=== PATIENT | female | born 1935 | race Caucasian/White ===

== ENCOUNTER → 2016-11-19 | Outpatient (REF) | payer MEDICARE, OTHER ==
[~2016-11-19] MED LIST: ASPI81TA45 OR; CALCCHW12 OR; CELE10TA OR; RESPERIDAL OR; SYNT137T OR; TEGR200T OR; THERGRAN OR; VITA100T OR; VITA400C OR
[2016-11-19 11:21] LABS: BASO % 0.6 % (0.0-1.0); EOS # 0.1 K/mm3 (0.0-0.50); EOS % 2.7 % (0.0-3.0); LARGE UNSTAINED CELL # 0.1 K/mm3 (0.0-0.4); LARGE UNSTAINED CELL % 2.8 % (0.0-4.0); LYMPH # 0.8 K/mm3 (1.5-4.5); LYMPH % 17.9 % (24.0-44.0); MEAN CORPUSCULAR HEMOGLOBIN 31.5 pg (27.0-33.0); MEAN CORPUSCULAR HGB CONC 32.8 g/dl (32.0-36.5); MEAN CORPUSCULAR VOLUME 96.2 fl (80.0-96.0); MONO # 0.3 K/mm3 (0.0-0.8); MONO % 6.8 % (0.0-5.0); NEUTROPHILS # 3.3 K/mm3 (1.8-7.7); NEUTROPHILS % 69.3 % (36.0-66.0); PLATELET COUNT, AUTOMATED 202 k/mm3 (150-450); RED CELL DISTRIBUTION WIDTH 13.3 % (11.5-14.5); WHITE BLOOD COUNT 4.7 K/mm3 (4.0-10.0)
[2016-11-19 11:45] LABS: ALBUMIN 3.9 GM/DL (3.2-5.2); ALBUMIN/GLOBULIN RATIO 1.26 (1.00-1.93); ALKALINE PHOSPHATASE 83 U/L (45-117); ALT/SGPT 43 U/L (12-78); ANION GAP 8 MEQ/L (8-16); AST/SGOT 26 U/L (15-37); BILIRUBIN,TOTAL 0.3 MG/DL (0.2-1.0); BLOOD UREA NITROGEN 29 MG/DL (7-18); CALCIUM LEVEL 8.3 MG/DL (8.8-10.2); CARBON DIOXIDE LEVEL 30 MEQ/L (21-32); CHLORIDE LEVEL 103 MEQ/L (98-107); CHOLESTEROL LEVEL 173 MG/DL (<200); CREATININE FOR GFR 0.66 MG/DL (0.55-1.02); GLOMERULAR FILTRATION RATE > 60.0 (>32); GLUCOSE, FASTING 88 MG/DL (83-110); POTASSIUM SERUM 4.3 MEQ/L (3.5-5.1); SODIUM LEVEL 141 MEQ/L (136-145); TRIGLYCERIDES LEVEL 23 MG/DL (<150)
== END ==
LOC: M SFHCCLAY 08:31
PROVIDERS: ATTEND Family Medicine
DX: N18.3 Chronic kidney disease, stage 3 (moderate) (principal); E55.9 Vitamin D deficiency, unspecified; M85.80 Other specified disorders of bone density and structure, unspecified site; R73.01 Impaired fasting glucose; E03.9 Hypothyroidism, unspecified; Z51.81 Encounter for therapeutic drug level monitoring

== ENCOUNTER → 2016-11-19 | Outpatient (REF) | payer MEDICARE, OTHER ==
[2016-11-19 11:41] LABS: BASO % 0.7 % (0.0-1.0); EOS # 0.1 K/mm3 (0.0-0.50); EOS % 2.3 % (0.0-3.0); LARGE UNSTAINED CELL # 0.1 K/mm3 (0.0-0.4); LARGE UNSTAINED CELL % 2.5 % (0.0-4.0); LYMPH # 0.9 K/mm3 (1.5-4.5); MEAN CORPUSCULAR HEMOGLOBIN 31.9 pg (27.0-33.0); MEAN CORPUSCULAR HGB CONC 33.2 g/dl (32.0-36.5); MEAN CORPUSCULAR VOLUME 96.2 fl (80.0-96.0); MONO # 0.3 K/mm3 (0.0-0.8); MONO % 6.8 % (0.0-5.0); NEUTROPHILS # 3.3 K/mm3 (1.8-7.7); NEUTROPHILS % 69.7 % (36.0-66.0); PLATELET COUNT, AUTOMATED 196 k/mm3 (150-450); RED CELL DISTRIBUTION WIDTH 13.4 % (11.5-14.5); WHITE BLOOD COUNT 4.8 K/mm3 (4.0-10.0)
== END ==
LOC: M LABDRAWC 11:22
PROVIDERS: ATTEND Psychiatry & Neurology Psychiatry
DX: Z51.81 Encounter for therapeutic drug level monitoring (principal)

== ENCOUNTER → 2017-03-01 | Outpatient (CLI) | payer MEDICARE, OTHER ==
--- NOTE | 2017-03-03 09:22 | DEXA ---
AP SPINE L1 - L4 1.640 3.6 5.4 LT FEMUR TOTAL 0.857 -1.2 0.8 RT FEMUR TOTAL 0.896 -0.9 1.1 TOTAL BODY TOTAL OTHER DUAL FEMUR FRAX* ASSESSMENT Risk factors: None. 10 year probability of fracture Major osteoporotic fracture 14.6 % Hip fracture 3.8 % COMMENTS: Normal bone densitometry of the spine. Normal bone densitometry of the right hip. There is low bone density of the left hip based on femoral neck T score -1.7 months. There is degenerative change in the spine which may artificially elevate the BMD. The increased density of the spine does represent a significant change since 01/2015. The increased density of the left hip does not represent a significant change . The decreased density of the right hip does not represent a significant change. The density of the spine has increased 21.0% since the initial exam on 1998. The spine density has increased 4.9% since the most recent exam on 11/21/2014. The density of the left hip has decreased 7.8% since the initial exam on 1998. The density of the left hip has increased 0.6% since the most recent exam on 01/2015. The density of the right hip has decreased 4.4% since the initial exam on 1998. The density of the right hip has decreased 0.9% since the most recent exam on . FOLLOW-UP: Recommendation for the next bone density exam: 2 years. YARITZA
== END ==
LOC: M WHC 14:29
PROVIDERS: ATTEND Family Medicine
DX: M85.80 Other specified disorders of bone density and structure, unspecified site (principal); Z78.0 Asymptomatic menopausal state

== ENCOUNTER → 2017-04-01 | Outpatient (REF) | payer MEDICARE, OTHER ==
[~2017-04-01] MED LIST changes: +CITA20TA4 PO; +RISP2TAB32 PO; +SYNT125T PO; -TEGR200T OR; +TEGR200T PO; +VITATAB11 PO
[2017-04-01 11:49] LABS: BASO % 0.9 % (0.0-1.0); EOS # 0.1 K/mm3 (0.0-0.50); EOS % 2.7 % (0.0-3.0); LARGE UNSTAINED CELL # 0.1 K/mm3 (0.0-0.4); LYMPH # 0.9 K/mm3 (1.5-4.5); LYMPH % 17.8 % (24.0-44.0); MEAN CORPUSCULAR HEMOGLOBIN 32.7 pg (27.0-33.0); MEAN CORPUSCULAR HGB CONC 33.2 g/dl (32.0-36.5); MEAN CORPUSCULAR VOLUME 98.4 fl (80.0-96.0); MONO # 0.4 K/mm3 (0.0-0.8); MONO % 9.7 % (0.0-5.0); NEUTROPHILS % 66.9 % (36.0-66.0); PLATELET COUNT, AUTOMATED 201 k/mm3 (150-450); RED CELL DISTRIBUTION WIDTH 13.6 % (11.5-14.5); WHITE BLOOD COUNT 4.5 K/mm3 (4.0-10.0)
[2017-04-01 12:09] LABS: CARCINOEMBRYONIC ANTIGEN 3.6 NG/ML (<2.5)
[2017-04-01 12:11] LABS: ERYTHROCYTE SEDIMENTATION RATE 7 mm/hr (0-30)
[2017-04-01 12:25] LABS: CARBAMAZEPINE (TEGRETOL) LEVEL 6.4 UG/ML (4.0-10.0); FERRITIN 42 NG/ML (8-252); FREE T4 1.05 NG/DL (0.76-1.46); PERCENT SATURATION 28.2 % (13.2-37.4); TOTAL IRON BINDING CAPACITY 305 UG/DL (250-450)
[2017-04-01 12:38] LABS: CA 125 2.2 U/ML (<30.2)
== END ==
LOC: M SFHCPLAZ 10:13
PROVIDERS: ATTEND Family Medicine
DX: R63.4 Abnormal weight loss (principal); E53.8 Deficiency of other specified B group vitamins; E03.9 Hypothyroidism, unspecified; R73.01 Impaired fasting glucose; F31.9 Bipolar disorder, unspecified; R27.0 Ataxia, unspecified; D75.89 Other specified diseases of blood and blood-forming organs; M77.42 Metatarsalgia, left foot; M85.80 Other specified disorders of bone density and structure, unspecified site; E55.9 Vitamin D deficiency, unspecified; R82.71 Bacteriuria; Z79.82 Long term (current) use of aspirin; Z79.899 Other long term (current) drug therapy
CPT/HCPCS: 36415; 80156; 82378; 82728; 83036; 83550; 84439; 84443; 85025; 85652; 86140; 86304; G0463

== ENCOUNTER 2017-06-16 08:30 | Outpatient (RCR) | payer MEDICARE, OTHER ==
[~2017-06-16 08:30] MED LIST changes: -CITA20TA4 PO; -RISP2TAB32 PO; -SYNT125T PO; -VITATAB11 PO
[2017-07-13] MEDS ORDERED: VITATAB11 PO (15:08)
[2017-07-13] MEDS ORDERED: CITA20TA4 PO (15:08)
[2017-07-13] MEDS ORDERED: SYNT125T PO (15:08)
[2017-07-13] MEDS ORDERED: RISP2TAB32 PO (15:08)
== END 2017-06-18 ==
LOC: M PT 08:30
PROVIDERS: ATTEND Family Medicine
DX: Z51.89 Encounter for other specified aftercare (principal); R27.0 Ataxia, unspecified
CPT/HCPCS: 97110; 97116; 97161; G8978; G8979

== ENCOUNTER → 2017-07-05 | Outpatient (CLI) | payer MEDICARE, OTHER ==
[~2017-07-05] MED LIST changes: +CITA20TA4 PO; +RISP2TAB32 PO; +SYNT125T PO; +VITATAB11 PO
[2017-07-05 18:40] LABS: BLOOD UREA NITROGEN 38 MG/DL (7-18); CREATININE FOR GFR 0.69 MG/DL (0.55-1.02); GLOMERULAR FILTRATION RATE > 60.0 (>32)
== END ==
LOC: M LAB 15:38
PROVIDERS: ATTEND Internal Medicine Gastroenterology
DX: R63.4 Abnormal weight loss (principal); R19.5 Other fecal abnormalities

== ENCOUNTER → 2017-07-08 | Outpatient (CLI) | payer MEDICARE, OTHER ==
[~2017-07-08] MED LIST changes: +GASTROGRAFIN SOLUTION 30ML (Q9963) As Ordered ONE; +ISOVUE-370 76% 100ML VIAL (Q9967) As Ordered ONE
--- NOTE | 2017-07-10 11:04 | REP ---
CT of the abdomen pelvis without and with IV contrast and with bowel contrast, triphasic scanning: There are no comparison studies. The visualized lung jones are unremarkable. There is minimal subcutaneous and intraperitoneal body fat tissue planes, compatible with emaciation. I suspect there is pectus excavatum. Cardiac size appears upper normal. The hepatic parenchyma is homogeneous. There are numerous gallbladder calculi. There is no biliary duct dilatation. There is no gallbladder wall thickening or pericholecystic fluid. The pancreas is difficult to visualize because of the paucity of intraperitoneal/retroperitoneal body fat, however, no focal pancreatic enlargement or mass is identified. MRI might be more sensitive. The spleen is normal size and unremarkable. The adrenals are unremarkable. There is a left renal cortical cyst approximately 2 cm in diameter. The kidneys are otherwise unremarkable. There is no hydronephrosis. The abdominal aorta is tortuous but otherwise unremarkable. There is a large volume of fecal residue throughout the colon and there is a large fecal bolus in the rectal ampulla, likely an impaction. There is no evidence of small bowel distension or obstruction. The uterus and adnexa are unremarkable. The bladder is unremarkable. No pelvic adenopathy or ascites is identified. There are no lytic, blastic or destructive skeletal changes. 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 Impression: There are no masses, adenopathy or ascites. However, there is a virtually no subcutaneous or intraperitoneal or retroperitoneal body fat compatible with emaciation . The pancreas is poorly demonstrated, MRI might be more sensitive. Large volume of fecal residue throughout the colon and a large fecal bolus in the rectal ampulla, likely an impaction. Signed by Frank Hill MD 07/10/2017 10:55 A
== END ==
LOC: M RAD 15:29
PROVIDERS: ATTEND Internal Medicine Gastroenterology
DX: R63.4 Abnormal weight loss (principal); R19.7 Diarrhea, unspecified; R19.5 Other fecal abnormalities
CPT/HCPCS: 74178; Q9963; Q9967

== ENCOUNTER 2017-07-22 08:34 | Outpatient (RCR) | payer MEDICARE, OTHER ==
[~2017-07-22 08:34] MED LIST changes: -GASTROGRAFIN SOLUTION 30ML (Q9963) As Ordered ONE; -ISOVUE-370 76% 100ML VIAL (Q9967) As Ordered ONE
== END 2017-08-18 ==
LOC: M PT 08:34
PROVIDERS: ATTEND Family Medicine
DX: Z51.89 Encounter for other specified aftercare (principal); R27.0 Ataxia, unspecified
CPT/HCPCS: 97530; G8978; G8979; G8980

== ENCOUNTER → 2017-08-04 | Outpatient (REF) | payer MEDICARE, OTHER ==
[2017-08-04 12:07] LABS: BASO % 0.8 % (0.0-1.0); EOS # 0.1 10^3/uL (0.0-0.50); EOS % 2.7 % (0.0-3.0); LYMPH # 1.3 10^3/uL (1.5-4.5); MEAN CORPUSCULAR HEMOGLOBIN 31.8 pg (27.0-33.0); MEAN CORPUSCULAR HGB CONC 33.4 g/dl (32.0-36.5); MEAN CORPUSCULAR VOLUME 95.2 fl (80.0-96.0); MONO # 0.5 10^3/uL (0.0-0.8); MONO % 10.1 % (0.0-5.0); NEUTROPHILS # 2.8 10^3/uL (1.8-7.7); NEUTROPHILS % 59.4 % (36.0-66.0); PLATELET COUNT, AUTOMATED 217 10^3/uL (150-450); RED CELL DISTRIBUTION WIDTH 14.6 % (11.5-14.5); WHITE BLOOD COUNT 4.7 10^3/uL (4.0-10.0)
[2017-08-04 12:42] LABS: ALBUMIN 3.6 GM/DL (3.2-5.2); ALBUMIN/GLOBULIN RATIO 1.16 (1.00-1.93); ALKALINE PHOSPHATASE 77 U/L (45-117); ALT/SGPT 51 U/L (12-78); ANION GAP 6 MEQ/L (8-16); AST/SGOT 28 U/L (7-37); BILIRUBIN,TOTAL 0.2 MG/DL (0.2-1.0); BLOOD UREA NITROGEN 35 MG/DL (7-18); CALCIUM LEVEL 8.7 MG/DL (8.8-10.2); CARBAMAZEPINE (TEGRETOL) LEVEL 4.9 UG/ML (4.0-10.0); CARBON DIOXIDE LEVEL 32 MEQ/L (21-32); CHLORIDE LEVEL 104 MEQ/L (98-107); CREATININE FOR GFR 0.65 MG/DL (0.55-1.02); GLOMERULAR FILTRATION RATE > 60.0 (>32); GLUCOSE, FASTING 79 MG/DL (83-110); POTASSIUM SERUM 4.6 MEQ/L (3.5-5.1); SODIUM LEVEL 142 MEQ/L (136-145); TOTAL PROTEIN 6.7 GM/DL (6.4-8.2)
[2017-08-05 10:10] LABS: CARCINOEMBRYONIC ANTIGEN 3.9 NG/ML (<2.5)
[2017-08-09 12:24] LABS: ALBUMIN % 59.4 % (55.8-66.1)
[2017-08-09 12:25] LABS: ALBUMIN 3.98 GM/DL (3.29-5.55); GAMMA GLOBULIN % 15.4 % (11.1-18.8)
== END ==
LOC: M SFHCPLAZ 10:34
PROVIDERS: ATTEND Family Medicine
DX: R63.4 Abnormal weight loss (principal); F31.9 Bipolar disorder, unspecified; D75.89 Other specified diseases of blood and blood-forming organs; Z86.010 Personal history of colon polyps; Z12.31 Encounter for screening mammogram for malignant neoplasm of breast; E55.9 Vitamin D deficiency, unspecified
CPT/HCPCS: 36415; 80053; 80156; 82378; 83615; 84165; 85025; 86334; G0463

== ENCOUNTER → 2017-09-20 | Outpatient (CLI) | payer MEDICARE, OTHER | LOC: M WHC 09:25 | DX: Z12.31 Encounter for screening mammogram for malignant neoplasm of breast (principal); Z78.0 Asymptomatic menopausal state | CPT/HCPCS: 77067 ==

== ENCOUNTER → 2017-10-13 | Outpatient (CLI) | payer MEDICARE, OTHER ==
[~2017-10-13] MED LIST changes: -ASPI81TA45 OR; -CALCCHW12 OR; -CELE10TA OR; -CITA20TA4 PO; +E-Z-GAS II EFFERVESCENT PACKET (SODIUM BICARB./CITRIC ACID/SIMETHICONE) As Ordered; +E-Z-HD 98% w/w 340GM SUSP BTL As Ordered; +E-Z-PAQUE 96% w/w SUSP 176GM BTL As Ordered; -RESPERIDAL OR; -RISP2TAB32 PO; -SYNT125T PO; -SYNT137T OR; -TEGR200T PO; -THERGRAN OR; -VITA100T OR; -VITA400C OR; -VITATAB11 PO
== END ==
LOC: M RAD 09:39
DX: R97.0 Elevated carcinoembryonic antigen [CEA] (principal)
CPT/HCPCS: 74245

== ENCOUNTER → 2017-12-08 | Outpatient (REF) | payer MEDICARE, OTHER ==
[2017-12-08 13:06] LABS: BASO # 0.1 10^3/uL (0.0-0.2); BASO % 1.1 % (0.0-1.0); EOS # 0.1 10^3/uL (0.0-0.50); EOS % 1.7 % (0.0-3.0); HEMATOCRIT 37.6 % (36.0-47.0); HEMOGLOBIN 12.6 g/dl (12.0-16.0); IMMATURE GRANULOCYTE % 0.2 % (0-3.0); LYMPH # 1.2 10^3/uL (1.5-4.5); LYMPH % 25.2 % (24.0-44.0); MEAN CORPUSCULAR HEMOGLOBIN 31.3 pg (27.0-33.0); MEAN CORPUSCULAR HGB CONC 33.5 g/dl (32.0-36.5); MEAN CORPUSCULAR VOLUME 93.5 fl (80.0-96.0); MONO # 0.5 10^3/uL (0.0-0.8); MONO % 11.1 % (0.0-5.0); NEUTROPHILS # 2.9 10^3/uL (1.8-7.7); NEUTROPHILS % 60.7 % (36.0-66.0); PLATELET COUNT, AUTOMATED 217 10^3/uL (150-450); RED BLOOD COUNT 4.02 10^6/uL (4.00-5.40); RED CELL DISTRIBUTION WIDTH 14.8 % (11.5-14.5); WHITE BLOOD COUNT 4.8 10^3/uL (4.0-10.0)
[2017-12-08 13:13] LABS: HEMATOCRIT 37.6 % (36.0-47.0)
[2017-12-08 13:35] LABS: ALBUMIN 3.8 GM/DL (3.2-5.2); ALBUMIN/GLOBULIN RATIO 1.09 (1.00-1.93); ALKALINE PHOSPHATASE 90 U/L (45-117); ALT/SGPT 45 U/L (12-78); ANION GAP 6 MEQ/L (8-16); AST/SGOT 30 U/L (7-37); BILIRUBIN,TOTAL 0.3 MG/DL (0.2-1.0); BLOOD UREA NITROGEN 27 MG/DL (7-18); CALCIUM LEVEL 8.6 MG/DL (8.8-10.2); CARBON DIOXIDE LEVEL 30 MEQ/L (21-32); CHLORIDE LEVEL 102 MEQ/L (98-107); CHOLESTEROL LEVEL 167 MG/DL (<200); CHOLESTEROL RISK RATIO 1.653 (<5); CREATININE FOR GFR 0.71 MG/DL (0.55-1.30); GLOMERULAR FILTRATION RATE > 60.0 (>32); GLUCOSE, FASTING 70 MG/DL (70-100); HDL CHOLESTEROL 101 MG/DL (>40); LDL CHOLESTEROL 58.2 MG/DL (<100); NON-HDL-C 66 MG/DL; POTASSIUM SERUM 4.7 MEQ/L (3.5-5.1); PTH INTACT 36.9 PG/ML (18.5-88.0); SODIUM LEVEL 138 MEQ/L (136-145); TOTAL 25(OH) VITAMIN D 73.9 NG/ML (30.0-100.0); TOTAL PROTEIN 7.3 GM/DL (6.4-8.2); TRIGLYCERIDES LEVEL 39 MG/DL (<150); VITAMIN B12 LEVEL 794 PG/ML (247-911)
[2017-12-08 13:58] LABS: ESTIMATED AVERAGE GLUCOSE 114 MG/DL (60-110); HEMOGLOBIN A1c 5.6 %
[2017-12-09 11:32] LABS: PRETREATED FOLATE FOR RBCFOL 12.3 NG/ML
== END ==
LOC: M SFHCPLAZ 11:41
DX: E03.9 Hypothyroidism, unspecified (principal); E53.8 Deficiency of other specified B group vitamins; F31.9 Bipolar disorder, unspecified; E55.9 Vitamin D deficiency, unspecified; R73.01 Impaired fasting glucose
CPT/HCPCS: 84443

== ENCOUNTER → 2017-12-17 | Outpatient (CLI) | payer MEDICARE, OTHER | LOC: M RAD 08:50 | DX: I67.82 Cerebral ischemia (principal); Z86.73 Personal history of transient ischemic attack (TIA), and cerebral infarction without residual deficits | CPT/HCPCS: 70551 ==

== ENCOUNTER → 2018-01-11 | Outpatient (REF) | payer MEDICARE, OTHER ==
[2018-01-11 18:18] LABS: BASO % 0.4 % (0.0-1.0); EOS # 0.1 10^3/uL (0.0-0.50); EOS % 0.7 % (0.0-3.0); HEMATOCRIT 33.9 % (36.0-47.0); HEMOGLOBIN 11.4 g/dl (12.0-15.5); IMMATURE GRANULOCYTE % 0.2 % (0-3.0); LYMPH # 1.2 10^3/uL (1.5-4.5); LYMPH % 13.6 % (24.0-44.0); MEAN CORPUSCULAR HEMOGLOBIN 31.9 pg (27.0-33.0); MEAN CORPUSCULAR HGB CONC 33.6 g/dl (32.0-36.5); MONO # 0.8 10^3/uL (0.0-0.8); MONO % 9.7 % (0.0-5.0); NEUTROPHILS # 6.4 10^3/uL (1.8-7.7); NEUTROPHILS % 75.4 % (36.0-66.0); PLATELET COUNT, AUTOMATED 197 10^3/uL (150-450); RED BLOOD COUNT 3.57 10^6/uL (4.00-5.40); RED CELL DISTRIBUTION WIDTH 14.5 % (11.5-14.5); WHITE BLOOD COUNT 8.4 10^3/uL (4.0-10.0)
== END ==
LOC: M SFHCPLAZ 16:52
DX: K62.5 Hemorrhage of anus and rectum (principal)
CPT/HCPCS: 85025

== ENCOUNTER 2018-01-17 17:30 | Emergency (ER) | payer MEDICARE, OTHER ==
[2018-01-17] MEDS: NS 500 ML IV (19:30)
[2018-01-17 19:39] LABS: BASO % 0.3 % (0.0-1.0); EOS # 0.1 10^3/uL (0.0-0.50); EOS % 1.1 % (0.0-3.0); HEMATOCRIT 30.7 % (36.0-47.0); HEMOGLOBIN 10.6 g/dl (12.0-15.5); IMMATURE GRANULOCYTE % 0.5 % (0-3.0); LYMPH # 1.1 10^3/uL (1.5-4.5); MEAN CORPUSCULAR HEMOGLOBIN 32.3 pg (27.0-33.0); MEAN CORPUSCULAR HGB CONC 34.5 g/dl (32.0-36.5); MEAN CORPUSCULAR VOLUME 93.6 fl (80.0-96.0); MONO # 1.3 10^3/uL (0.0-0.8); MONO % 14.3 % (0.0-5.0); NEUTROPHILS # 6.2 10^3/uL (1.8-7.7); NEUTROPHILS % 70.8 % (36.0-66.0); PLATELET COUNT, AUTOMATED 219 10^3/uL (150-450); RED BLOOD COUNT 3.28 10^6/uL (4.00-5.40); RED CELL DISTRIBUTION WIDTH 14.4 % (11.5-14.5); WHITE BLOOD COUNT 8.8 10^3/uL (4.0-10.0)
[2018-01-17 20:03] LABS: KETONE, URINE AUTO RFX NEGATIVE (NEGATIVE); LEUKOCYTE ESTERASE UR AUTO RFX NEGATIVE (NEGATIVE); MUCUS, URINE RFX SMALL (NEGATIVE); NITRITE, URINE AUTO RFX NEGATIVE (NEGATIVE); RBC, URINE AUTO RFX 0 /HPF (0-3); SPECIFIC GRAVITY UR AUTO RFX 1.013 (1.002-1.035); SQUAM EPITHELIAL CELL UR AURFX 0 /HPF (0-6); WBC, URINE AUTO RFX 0 /HPF (0-3)
[2018-01-17 20:15] LABS: ALBUMIN/GLOBULIN RATIO 0.94 (1.00-1.93); ALKALINE PHOSPHATASE 64 U/L (45-117); ALT/SGPT 103 U/L (12-78); AMYLASE 82 U/L (25-115); ANION GAP 7 MEQ/L (8-16); AST/SGOT 71 U/L (7-37); BILIRUBIN,DIRECT < 0.1 MG/DL (0.0-0.2); BILIRUBIN,TOTAL 0.3 MG/DL (0.2-1.0); BLOOD UREA NITROGEN 34 MG/DL (7-18); CALCIUM LEVEL 8.3 MG/DL (8.8-10.2); CARBON DIOXIDE LEVEL 29 MEQ/L (21-32); CHLORIDE LEVEL 105 MEQ/L (98-107); CREATININE FOR GFR 0.66 MG/DL (0.55-1.30); GLOMERULAR FILTRATION RATE > 60.0 (>32); GLUCOSE, FASTING 86 MG/DL (70-100); LIPASE 122 U/L (73-393); POTASSIUM SERUM 4.8 MEQ/L (3.5-5.1); SODIUM LEVEL 141 MEQ/L (136-145); TOTAL PROTEIN 6.2 GM/DL (6.4-8.2)
[2018-01-17] MEDS: GASTROGRAFIN SOLUTION 30ML PO ×2 (21:00→21:22)
[2018-01-17 21:09] LABS: LACTIC ACID SEPSIS PROTOCOL 1.2 MMOL/L (0.4-2.0)
[2018-01-17] MEDS ORDERED: ISOVUE-370 76% 100ML VIAL (Q9967) As Ordered (22:39)
== END 2018-01-18 01:21 | disposition home or self-care (01) ==
LOC: M ED 01-18 01:21
DX: K62.3 Rectal prolapse (principal); R10.9 Unspecified abdominal pain; M79.89 Other specified soft tissue disorders; I10 Essential (primary) hypertension; F31.9 Bipolar disorder, unspecified; Z79.899 Other long term (current) drug therapy; Z79.82 Long term (current) use of aspirin
CPT/HCPCS: Q9963

== ENCOUNTER → 2018-01-17 | Outpatient (REF) | payer MEDICARE, OTHER ==
[2018-01-17 19:02] LABS: APPEARANCE, URINE CLOUDY (CLEAR); BACTERIA, URINE AUTO NEGATIVE (NEGATIVE); BILIRUBIN, URINE AUTO NEGATIVE (NEGATIVE); BLOOD, URINE BLOOD NEGATIVE (NEGATIVE); COLOR, URINE YELLOW (YELLOW); GLUCOSE, URINE (UA) AUTO NEGATIVE (NEGATIVE); KETONE, URINE AUTO NEGATIVE (NEGATIVE); LEUKOCYTE ESTERASE, URINE AUTO 2+ (NEGATIVE); MUCUS, URINE SMALL (NEGATIVE); NITRITE, URINE AUTO NEGATIVE (NEGATIVE); PROTEIN, URINE AUTO NEGATIVE (NEGATIVE); RBC, URINE AUTO 2 /HPF (0-3); SPECIFIC GRAVITY URINE AUTO 1.018 (1.002-1.035); SQUAMOUS EPITHELIAL CELL UR AU 4 /HPF (0-6); UROBILINOGEN, URINE AUTO 0.2 mg/dL (0.0-2.0); WBC, URINE AUTO 6 /HPF (0-3)
== END ==
LOC: M SFHCPLAZ 17:26
DX: R53.1 Weakness (principal)
CPT/HCPCS: 81001

== ENCOUNTER 2018-01-23 07:57 | Inpatient (IN) | payer MEDICARE, OTHER ==
[2018-01-23] MEDS: NS 500 ML IV (08:15)
[2018-01-23] MEDS: MAGNESIUM OXIDE 400 MG TAB (MAG-OX) PO (09:00)
[2018-01-23] MEDS: VITAMIN B COMPLEX/VIT C CAP PO (09:00)
[2018-01-23] MEDS: ASCORBIC ACID 500 MG TAB PO (09:00)
[2018-01-23] MEDS: VITAMIN E 400 INTERNATIONAL UNITS CAP PO (09:00)
[2018-01-23] MEDS: CYANOCOBALAMIN 500 MCG TAB PO (09:00)
[2018-01-23] MEDS: MORPHINE 2 MG/ML 1ML SYRINGE (J2270) IV (09:10)
[2018-01-23 09:14] LABS: BASO % 0.4 % (0.0-1.0); EOS % 0.3 % (0.0-3.0); HEMATOCRIT 28.9 % (36.0-47.0); HEMOGLOBIN 9.9 g/dl (12.0-15.5); IMMATURE GRANULOCYTE % 0.6 % (0-3.0); LYMPH # 0.6 10^3/uL (1.5-4.5); LYMPH % 5.7 % (24.0-44.0); MEAN CORPUSCULAR HEMOGLOBIN 32.7 pg (27.0-33.0); MEAN CORPUSCULAR HGB CONC 34.3 g/dl (32.0-36.5); MEAN CORPUSCULAR VOLUME 95.4 fl (80.0-96.0); MONO % 10.1 % (0.0-5.0); NEUTROPHILS # 8.6 10^3/uL (1.8-7.7); NEUTROPHILS % 82.9 % (36.0-66.0); PLATELET COUNT, AUTOMATED 281 10^3/uL (150-450); RED BLOOD COUNT 3.03 10^6/uL (4.00-5.40); RED CELL DISTRIBUTION WIDTH 14.6 % (11.5-14.5); WHITE BLOOD COUNT 10.3 10^3/uL (4.0-10.0)
[2018-01-23 09:30] LABS: LACTIC ACID SEPSIS PROTOCOL 1.1 MMOL/L (0.4-2.0)
[2018-01-23 09:31] LABS: ALBUMIN 2.8 GM/DL (3.2-5.2); ALBUMIN/GLOBULIN RATIO 0.88 (1.00-1.93); ALKALINE PHOSPHATASE 70 U/L (45-117); ALT/SGPT 49 U/L (12-78); AMYLASE 73 U/L (25-115); ANION GAP 6 MEQ/L (8-16); AST/SGOT 30 U/L (7-37); BILIRUBIN,DIRECT < 0.1 MG/DL (0.0-0.2); BILIRUBIN,TOTAL 0.3 MG/DL (0.2-1.0); BLOOD UREA NITROGEN 23 MG/DL (7-18); CALCIUM LEVEL 7.8 MG/DL (8.8-10.2); CARBON DIOXIDE LEVEL 29 MEQ/L (21-32); CHLORIDE LEVEL 108 MEQ/L (98-107); CK-MB VALUE MASS 8.7 NG/ML (<3.6); CPK CREATINE PHOSPHOKINASE 447 U/L (26-192); CREATININE FOR GFR 0.73 MG/DL (0.55-1.30); GLOMERULAR FILTRATION RATE > 60.0 (>32); GLUCOSE, FASTING 84 MG/DL (70-100); LIPASE 64 U/L (73-393); MB/CK RELATIVE INDEX 1.94 (< OR =4); POTASSIUM SERUM 3.9 MEQ/L (3.5-5.1); SODIUM LEVEL 143 MEQ/L (136-145); TROPONIN I 0.02 NG/ML (< 0.10)
[2018-01-23 09:46] LABS: INR 1.06; PROTHROMBIN TIME 13.9 SECONDS (12.4-14.5)
[2018-01-23 09:47] LABS: PARTIAL THROMBOPLASTIN TIME 29.9 SECONDS (26.8-37.9)
[2018-01-23 12:38] LABS: BEDSIDE GLUCOSE 91 MG/DL (83-110)
[2018-01-23] MEDS ORDERED: ACETAMINOPHEN TAB 650MG DOSE (2X325MG) PO (13:00)
[2018-01-23] MEDS: NS 1,000 ML IV (13:00)
[2018-01-23] MEDS: MULTIVITAMINS/MINERALS THERAP 1 TAB PO (13:00)
[2018-01-23 13:35] LABS: CARBAMAZEPINE (TEGRETOL) LEVEL 5.8 UG/ML (4.0-10.0)
[2018-01-23] MEDS: LEVOTHYROXINE 125MCG TABLET (0.125MG) PO (14:16)
[2018-01-23] MEDS: CitaloPRAM (CeleXA) 10 MG TABLET PO (14:16)
[2018-01-23] MEDS: carBAMazepine 200 MG TAB PO ×2 (14:16→20:04)
[2018-01-23] MEDS: PANTOPRAZOLE 40MG TAB (PROTONIX) PO (14:16)
[2018-01-23] MEDS: risperiDONE 2 MG TAB PO (20:04)
[2018-01-23] MEDS: NORCO, ANEXSIA 5/325MG TABLET (HYDROcodone/ACETAMINOPHEN) PO (20:05)
[2018-01-23] MEDS: CALCIUM/VITAMIN D 500 MG TAB PO (20:15)
[2018-01-24] MEDS: NS 1,000 ML IV ×2 (05:31→15:40)
[2018-01-24] MEDS: LEVOTHYROXINE 125MCG TABLET (0.125MG) PO (05:31)
[2018-01-24 06:14] LABS: HEMATOCRIT 27.2 % (36.0-47.0); HEMOGLOBIN 9.2 g/dl (12.0-15.5); MEAN CORPUSCULAR HEMOGLOBIN 32.2 pg (27.0-33.0); MEAN CORPUSCULAR HGB CONC 33.8 g/dl (32.0-36.5); MEAN CORPUSCULAR VOLUME 95.1 fl (80.0-96.0); PLATELET COUNT, AUTOMATED 268 10^3/uL (150-450); RED BLOOD COUNT 2.86 10^6/uL (4.00-5.40); RED CELL DISTRIBUTION WIDTH 14.6 % (11.5-14.5); WHITE BLOOD COUNT 5.8 10^3/uL (4.0-10.0)
[2018-01-24 06:50] LABS: ANION GAP 5 MEQ/L (8-16); BLOOD UREA NITROGEN 19 MG/DL (7-18); CALCIUM LEVEL 6.9 MG/DL (8.8-10.2); CARBON DIOXIDE LEVEL 27 MEQ/L (21-32); CHLORIDE LEVEL 112 MEQ/L (98-107); CPK CREATINE PHOSPHOKINASE 501 U/L (26-192); CREATININE FOR GFR 0.62 MG/DL (0.55-1.30); GLOMERULAR FILTRATION RATE > 60.0 (>32); GLUCOSE, FASTING 75 MG/DL (70-100); POTASSIUM SERUM 3.7 MEQ/L (3.5-5.1); SODIUM LEVEL 144 MEQ/L (136-145)
[2018-01-24] MEDS: MAGNESIUM OXIDE 400 MG TAB (MAG-OX) PO (08:11)
[2018-01-24] MEDS: CALCIUM/VITAMIN D 500 MG TAB PO ×2 (08:11→20:50)
[2018-01-24] MEDS: CYANOCOBALAMIN 500 MCG TAB PO (08:12)
[2018-01-24] MEDS: ASCORBIC ACID 500 MG TAB PO (08:12)
[2018-01-24] MEDS: VITAMIN E 400 INTERNATIONAL UNITS CAP PO (08:12)
[2018-01-24] MEDS: VITAMIN B COMPLEX/VIT C CAP PO (08:12)
[2018-01-24] MEDS: CitaloPRAM (CeleXA) 10 MG TABLET PO (08:14)
[2018-01-24] MEDS: PANTOPRAZOLE 40MG TAB (PROTONIX) PO (08:14)
[2018-01-24] MEDS: carBAMazepine 200 MG TAB PO ×2 (08:15→20:56)
[2018-01-24] MEDS: NORCO, ANEXSIA 5/325MG TABLET (HYDROcodone/ACETAMINOPHEN) PO (08:16)
[2018-01-24] MEDS: risperiDONE 2 MG TAB PO (20:56)
[2018-01-25] MEDS: NS 1,000 ML IV (03:34)
[2018-01-25] MEDS: LEVOTHYROXINE 125MCG TABLET (0.125MG) PO (05:36)
[2018-01-25 06:04] LABS: HEMATOCRIT 27.9 % (36.0-47.0); HEMOGLOBIN 9.5 g/dl (12.0-15.5); MEAN CORPUSCULAR HEMOGLOBIN 32.1 pg (27.0-33.0); MEAN CORPUSCULAR HGB CONC 34.1 g/dl (32.0-36.5); MEAN CORPUSCULAR VOLUME 94.3 fl (80.0-96.0); PLATELET COUNT, AUTOMATED 274 10^3/uL (150-450); RED BLOOD COUNT 2.96 10^6/uL (4.00-5.40); RED CELL DISTRIBUTION WIDTH 14.7 % (11.5-14.5); WHITE BLOOD COUNT 6.8 10^3/uL (4.0-10.0)
[2018-01-25 06:27] LABS: ALBUMIN 2.2 GM/DL (3.2-5.2); ANION GAP 5 MEQ/L (8-16); BLOOD UREA NITROGEN 15 MG/DL (7-18); CALCIUM LEVEL 7.2 MG/DL (8.8-10.2); CARBON DIOXIDE LEVEL 26 MEQ/L (21-32); CHLORIDE LEVEL 111 MEQ/L (98-107); CPK CREATINE PHOSPHOKINASE 436 U/L (26-192); CREATININE FOR GFR 0.55 MG/DL (0.55-1.30); FREE T4 0.94 NG/DL (0.76-1.46); GLOMERULAR FILTRATION RATE > 60.0 (>32); GLUCOSE, FASTING 85 MG/DL (70-100); POTASSIUM SERUM 3.7 MEQ/L (3.5-5.1); SODIUM LEVEL 142 MEQ/L (136-145)
[2018-01-25] MEDS: MAGNESIUM OXIDE 400 MG TAB (MAG-OX) PO (07:55)
[2018-01-25] MEDS: CALCIUM/VITAMIN D 500 MG TAB PO (07:55)
[2018-01-25] MEDS: VITAMIN B COMPLEX/VIT C CAP PO (07:55)
[2018-01-25] MEDS: CYANOCOBALAMIN 500 MCG TAB PO (07:55)
[2018-01-25] MEDS: VITAMIN E 400 INTERNATIONAL UNITS CAP PO (07:56)
[2018-01-25] MEDS: ASCORBIC ACID 500 MG TAB PO (07:56)
[2018-01-25] MEDS: CitaloPRAM (CeleXA) 10 MG TABLET PO (08:07)
[2018-01-25] MEDS: PANTOPRAZOLE 40MG TAB (PROTONIX) PO (08:07)
[2018-01-25] MEDS: carBAMazepine 200 MG TAB PO ×2 (08:07→21:43)
[2018-01-25] MEDS: risperiDONE 2 MG TAB PO (21:43)
[2018-01-26] MEDS: NORCO, ANEXSIA 5/325MG TABLET (HYDROcodone/ACETAMINOPHEN) PO (01:05)
[2018-01-26] MEDS: LEVOTHYROXINE 125MCG TABLET (0.125MG) PO (05:59)
[2018-01-26 06:34] LABS: HEMATOCRIT 28.3 % (36.0-47.0); HEMOGLOBIN 9.8 g/dl (12.0-15.5); MEAN CORPUSCULAR HEMOGLOBIN 32.6 pg (27.0-33.0); MEAN CORPUSCULAR HGB CONC 34.6 g/dl (32.0-36.5); PLATELET COUNT, AUTOMATED 287 10^3/uL (150-450); RED BLOOD COUNT 3.01 10^6/uL (4.00-5.40); RED CELL DISTRIBUTION WIDTH 14.8 % (11.5-14.5); WHITE BLOOD COUNT 6.8 10^3/uL (4.0-10.0)
[2018-01-26 06:52] LABS: ANION GAP 7 MEQ/L (8-16); BLOOD UREA NITROGEN 14 MG/DL (7-18); CALCIUM LEVEL 7.5 MG/DL (8.8-10.2); CARBON DIOXIDE LEVEL 26 MEQ/L (21-32); CHLORIDE LEVEL 111 MEQ/L (98-107); CPK CREATINE PHOSPHOKINASE 375 U/L (26-192); CREATININE FOR GFR 0.59 MG/DL (0.55-1.30); GLOMERULAR FILTRATION RATE > 60.0 (>32); GLUCOSE, FASTING 82 MG/DL (70-100); POTASSIUM SERUM 3.6 MEQ/L (3.5-5.1); SODIUM LEVEL 144 MEQ/L (136-145)
[2018-01-26] MEDS: CYANOCOBALAMIN 500 MCG TAB PO (09:00)
[2018-01-26] MEDS: MAGNESIUM OXIDE 400 MG TAB (MAG-OX) PO (09:00)
[2018-01-26] MEDS: PANTOPRAZOLE 40MG TAB (PROTONIX) PO (09:10)
[2018-01-26] MEDS: carBAMazepine 200 MG TAB PO ×2 (09:10→22:53)
[2018-01-26] MEDS: CitaloPRAM (CeleXA) 10 MG TABLET PO (09:10)
[2018-01-26] MEDS: NS 1,000 ML IV (12:00)
[2018-01-26 13:56] LABS: IRON (FE) 65 UG/DL (50-170); TOTAL IRON BINDING CAPACITY 191 UG/DL (250-450)
[2018-01-26 13:57] LABS: VITAMIN B12 LEVEL 617 PG/ML (247-911)
[2018-01-26] MEDS: risperiDONE 2 MG TAB PO (22:53)
[2018-01-27] MEDS: LEVOTHYROXINE 125MCG TABLET (0.125MG) PO (05:43)
[2018-01-27] MEDS: MAGNESIUM OXIDE 400 MG TAB (MAG-OX) PO (08:04)
[2018-01-27] MEDS: CYANOCOBALAMIN 500 MCG TAB PO (08:04)
[2018-01-27] MEDS: carBAMazepine 200 MG TAB PO ×2 (08:04→20:06)
[2018-01-27] MEDS: PANTOPRAZOLE 40MG TAB (PROTONIX) PO (08:04)
[2018-01-27] MEDS: CitaloPRAM (CeleXA) 10 MG TABLET PO (08:05)
[2018-01-27] MEDS: risperiDONE 2 MG TAB PO (20:07)
[2018-01-27] MEDS: NORCO, ANEXSIA 5/325MG TABLET (HYDROcodone/ACETAMINOPHEN) PO (21:38)
[2018-01-28] MEDS: NORCO, ANEXSIA 5/325MG TABLET (HYDROcodone/ACETAMINOPHEN) PO ×3 (01:43→17:07)
[2018-01-28] MEDS: LEVOTHYROXINE 125MCG TABLET (0.125MG) PO (05:19)
[2018-01-28] MEDS: CYANOCOBALAMIN 500 MCG TAB PO (08:09)
[2018-01-28] MEDS: PANTOPRAZOLE 40MG TAB (PROTONIX) PO (08:09)
[2018-01-28] MEDS: CitaloPRAM (CeleXA) 10 MG TABLET PO (08:09)
[2018-01-28] MEDS: carBAMazepine 200 MG TAB PO ×2 (08:10→20:27)
[2018-01-28] MEDS: MAGNESIUM OXIDE 400 MG TAB (MAG-OX) PO (08:10)
[2018-01-28 15:29] LABS: KETONE, URINE AUTO RFX NEGATIVE (NEGATIVE); MUCUS, URINE RFX SMALL (NEGATIVE); NITRITE, URINE AUTO RFX NEGATIVE (NEGATIVE); RBC, URINE AUTO RFX 2 /HPF (0-3); SPECIFIC GRAVITY UR AUTO RFX 1.013 (1.002-1.035); SQUAM EPITHELIAL CELL UR AURFX 0 /HPF (0-6)
[2018-01-28 15:33] LABS: LEUKOCYTE ESTERASE UR AUTO RFX 3+ (NEGATIVE); WBC, URINE AUTO RFX 71 /HPF (0-3)
[2018-01-28] MEDS: CIPROFLOXACIN 250 MG TAB PO (17:07)
[2018-01-28] MEDS: risperiDONE 2 MG TAB PO (20:28)
[2018-01-29] MEDS: CIPROFLOXACIN 250 MG TAB PO ×2 (05:36→17:06)
[2018-01-29] MEDS: LEVOTHYROXINE 125MCG TABLET (0.125MG) PO (05:36)
[2018-01-29] MEDS: NORCO, ANEXSIA 5/325MG TABLET (HYDROcodone/ACETAMINOPHEN) PO ×3 (07:31→20:34)
[2018-01-29] MEDS: CYANOCOBALAMIN 500 MCG TAB PO (08:11)
[2018-01-29] MEDS: MAGNESIUM OXIDE 400 MG TAB (MAG-OX) PO (08:11)
[2018-01-29] MEDS: PANTOPRAZOLE 40MG TAB (PROTONIX) PO (08:11)
[2018-01-29] MEDS: CitaloPRAM (CeleXA) 10 MG TABLET PO (08:11)
[2018-01-29] MEDS: carBAMazepine 200 MG TAB PO ×2 (08:11→20:31)
[2018-01-29] MEDS: risperiDONE 2 MG TAB PO (20:31)
[2018-01-30] MEDS: NORCO, ANEXSIA 5/325MG TABLET (HYDROcodone/ACETAMINOPHEN) PO ×2 (03:04→21:13)
[2018-01-30] MEDS: CIPROFLOXACIN 250 MG TAB PO (05:50)
[2018-01-30] MEDS: LEVOTHYROXINE 125MCG TABLET (0.125MG) PO (05:50)
[2018-01-30] MEDS: CYANOCOBALAMIN 500 MCG TAB PO (09:21)
[2018-01-30] MEDS: PANTOPRAZOLE 40MG TAB (PROTONIX) PO (09:21)
[2018-01-30] MEDS: carBAMazepine 200 MG TAB PO ×2 (09:21→21:09)
[2018-01-30] MEDS: MAGNESIUM OXIDE 400 MG TAB (MAG-OX) PO (09:21)
[2018-01-30] MEDS: CitaloPRAM (CeleXA) 10 MG TABLET PO (09:21)
[2018-01-30] MEDS: CEFUROXIME 250 MG TAB PO ×2 (14:51→21:09)
[2018-01-30] MEDS: risperiDONE 2 MG TAB PO (21:09)
[2018-01-31] MEDS: NORCO, ANEXSIA 5/325MG TABLET (HYDROcodone/ACETAMINOPHEN) PO ×3 (04:14→20:11)
[2018-01-31] MEDS: LEVOTHYROXINE 125MCG TABLET (0.125MG) PO (06:23)
[2018-01-31] MEDS: CEFUROXIME 250 MG TAB PO ×2 (08:43→20:12)
[2018-01-31] MEDS: MAGNESIUM OXIDE 400 MG TAB (MAG-OX) PO (08:43)
[2018-01-31] MEDS: CitaloPRAM (CeleXA) 10 MG TABLET PO (08:43)
[2018-01-31] MEDS: CYANOCOBALAMIN 500 MCG TAB PO (08:43)
[2018-01-31] MEDS: PANTOPRAZOLE 40MG TAB (PROTONIX) PO (08:43)
[2018-01-31] MEDS: carBAMazepine 200 MG TAB PO ×2 (08:43→20:11)
[2018-01-31] MEDS: risperiDONE 2 MG TAB PO (20:12)
[2018-02-01] MEDS: NORCO, ANEXSIA 5/325MG TABLET (HYDROcodone/ACETAMINOPHEN) PO (01:58)
[2018-02-01] MEDS: LEVOTHYROXINE 125MCG TABLET (0.125MG) PO (05:56)
[2018-02-01] MEDS: PANTOPRAZOLE 40MG TAB (PROTONIX) PO (08:26)
[2018-02-01] MEDS: carBAMazepine 200 MG TAB PO (08:26)
[2018-02-01] MEDS: CitaloPRAM (CeleXA) 10 MG TABLET PO (08:26)
[2018-02-01] MEDS: CYANOCOBALAMIN 500 MCG TAB PO (08:26)
[2018-02-01] MEDS: MAGNESIUM OXIDE 400 MG TAB (MAG-OX) PO (08:26)
[2018-02-01] MEDS: CEFUROXIME 250 MG TAB PO (08:26)
== END 2018-02-01 14:05 | disposition home or self-care (01) | DRG 566 ==
LOC: M ED 07:57 → M ED INP 12:53 → M MSPAV 14:35
PROVIDERS: Family Medicine
PROC: 0DJ08ZZ Inspection of Upper Intestinal Tract, Via Natural or Artificial Opening Endoscopic (ICD-10-PCS; principal; 2018-01-26 12:51)
DX: T79.6XXA Traumatic ischemia of muscle, initial encounter (principal); E03.9 Hypothyroidism, unspecified; F03.90 Unspecified dementia, unspecified severity, without behavioral disturbance, psychotic disturbance, mood disturbance, and anxiety; R33.9 Retention of urine, unspecified; F31.9 Bipolar disorder, unspecified; K44.9 Diaphragmatic hernia without obstruction or gangrene; K62.3 Rectal prolapse; D63.8 Anemia in other chronic diseases classified elsewhere; W01.0XXA Fall on same level from slipping, tripping and stumbling without subsequent striking against object, initial encounter; Y92.002 Bathroom of unspecified non-institutional (private) residence as the place of occurrence of the external cause; Y93.01 Activity, walking, marching and hiking

== ENCOUNTER → 2018-04-14 | Outpatient (REF) | payer MEDICARE, OTHER ==
[2018-04-14 13:22] LABS: BASO # 0.1 10^3/uL (0.0-0.2); BASO % 0.9 % (0.0-1.0); EOS # 0.2 10^3/uL (0.0-0.50); EOS % 2.6 % (0.0-3.0); HEMATOCRIT 32.9 % (36.0-47.0); HEMOGLOBIN 10.9 g/dl (12.0-15.5); IMMATURE GRANULOCYTE % 0.7 % (0-3.0); LYMPH # 1.2 10^3/uL (1.5-4.5); MEAN CORPUSCULAR HEMOGLOBIN 31.1 pg (27.0-33.0); MEAN CORPUSCULAR HGB CONC 33.1 g/dl (32.0-36.5); MEAN CORPUSCULAR VOLUME 93.7 fl (80.0-96.0); MONO # 0.6 10^3/uL (0.0-0.8); MONO % 10.4 % (0.0-5.0); NEUTROPHILS # 3.8 10^3/uL (1.8-7.7); NEUTROPHILS % 64.4 % (36.0-66.0); PLATELET COUNT, AUTOMATED 274 10^3/uL (150-450); RED BLOOD COUNT 3.51 10^6/uL (4.00-5.40); RED CELL DISTRIBUTION WIDTH 15.8 % (11.5-14.5); RETIC HEMOGLOBIN EQUIVALENT 35.4 pg (24-36); RETICULOCYTE # 67.7 10^9/L (17-77); RETICULOCYTE % 1.9 % (0.5-1.5); WHITE BLOOD COUNT 5.9 10^3/uL (4.0-10.0)
[2018-04-14 14:26] LABS: ALBUMIN 3.1 GM/DL (3.2-5.2); ALBUMIN/GLOBULIN RATIO 0.72 (1.00-1.93); ALKALINE PHOSPHATASE 112 U/L (45-117); ALT/SGPT 17 U/L (12-78); ANION GAP 8 MEQ/L (8-16); AST/SGOT 18 U/L (7-37); BILIRUBIN,TOTAL 0.3 MG/DL (0.2-1.0); BLOOD UREA NITROGEN 20 MG/DL (7-18); CALCIUM LEVEL 8.8 MG/DL (8.8-10.2); CARBAMAZEPINE (TEGRETOL) LEVEL 8.5 UG/ML (4.0-10.0); CARBON DIOXIDE LEVEL 30 MEQ/L (21-32); CHLORIDE LEVEL 102 MEQ/L (98-107); CREATININE FOR GFR 0.62 MG/DL (0.55-1.30); FREE T4 1.16 NG/DL (0.76-1.46); GLOMERULAR FILTRATION RATE > 60.0 (>32); GLUCOSE, FASTING 74 MG/DL (70-100); POTASSIUM SERUM 4.3 MEQ/L (3.5-5.1); PREALBUMIN 24.4 MG/DL (20.0-40.0); SODIUM LEVEL 140 MEQ/L (136-145); THYROID STIMULATING HORMONE 0.718 uIU/ML (0.358-3.740); TOTAL PROTEIN 7.4 GM/DL (6.4-8.2)
== END ==
LOC: M SFHCPLAZ 11:52
DX: R63.4 Abnormal weight loss (principal); E03.9 Hypothyroidism, unspecified; F31.9 Bipolar disorder, unspecified; E53.8 Deficiency of other specified B group vitamins
CPT/HCPCS: 83735

== ENCOUNTER → 2019-02-22 | Outpatient (CLI) | payer MEDICARE, OTHER ==
[~2019-02-22] MED LIST changes: +ASPI81TA45 PO; +CALC1TAB74 PO; +CALCCHW12 OR; +CEFU1TAB20 PO; +CELE10TA OR; +CITA20TA6 PO; -E-Z-GAS II EFFERVESCENT PACKET (SODIUM BICARB./CITRIC ACID/SIMETHICONE) As Ordered; -E-Z-HD 98% w/w 340GM SUSP BTL As Ordered; -E-Z-PAQUE 96% w/w SUSP 176GM BTL As Ordered; +MAGN400T5 PO; +PANT40TA3 PO; +PATIENT COMMENT; +RESPERIDAL OR; +RISP2TAB32 PO; +SYNT125T PO; +SYNT137T OR; +TEGR200T PO; +THERGRAN PO; +VITA100T OR; +VITA400C PO; +VITA500T PO; +VITA500T17 PO; +VITATAB11 PO
--- NOTE | 2019-02-22 15:23 | REPMRS ---
Patient History The patient states she has not had a clinical breast exam in over a year. Family history of breast cancer in niece. 3D TOMOSYNTHESIS WAS PERFORMED. Digital Woman Screen Mammo: February 22, 2019 - Exam #: [id number] Bilateral CC and MLO view(s) were taken. Technologist: Lizabeth Stokes, Technologist Prior study comparison: September 20, 2017, digital woman screen mammo performed at [facility]. August 18, 2016, digital woman screen mammo performed at [facility] [place]. FINDINGS: The breast tissue is heterogeneously dense. This may lower the sensitivity of mammography. There has been no change in the appearance of the mammogram from the prior studies. There is a moderate amount of residual fibroglandular tissue which is fairly symmetric. There is no interval development of dominant mass, areas of architectural distortion, or clustered microcalcification typical of malignancy. Assessment: BI-RADS/ACR category 1 mammogram. Negative Mammogram. Recommendation Routine screening mammogram in 1 year (for women over age 40). This mammogram was interpreted with the aid of an FDA-approved computer-aided dectection system. Electronically Signed By: Frank Padgett MD 02/22/19 [id number]
== END ==
LOC: M WHC 10:06
PROVIDERS: ATTEND Family Medicine
DX: Z12.31 Encounter for screening mammogram for malignant neoplasm of breast (principal)

== ENCOUNTER → 2020-03-04 | Outpatient (CLI) | payer MEDICARE, OTHER ==
[~2020-03-04] MED LIST changes: +VITA-243 PO; -VITA500T PO
--- NOTE | 2020-03-04 16:09 | REPMRS ---
Patient History The patient states she has not had a clinical breast exam in over a year. Family history of breast cancer in niece. Digital Woman Screen Mammo: March 04, 2020 - Exam #: [id number] Bilateral CC and MLO view(s) were taken. Technologist: Becky Leach, Technologist Prior study comparison: February 22, 2019, bilateral digital woman screen mammo performed at [facility]. September 20, 2017, digital woman screen mammo performed at [facility]. August 18, 2016, digital woman screen mammo performed at [facility]. FINDINGS: The breast tissue is extremely dense which could obscure a lesion on mammography. The Volpara volumetric breast density category is: D. There is an extremely dense symmetrical pattern of residual fibroglandular tissue. There has been no change in the appearance of the mammogram from the previous studies. There is no interval development of dominant mass, archetectural distortion, or grouped microcalcifications suggestive of malignancy. 3-D tomosynthesis shows no additional findings. Assessment: BI-RADS/ACR category 1 mammogram. Negative Mammogram. Recommendation Routine screening mammogram of both breasts in 1 year (for women over age 40). This patient's Lifetime Breast Cancer RIsk is estimated at 0.6 %. This mammogram was interpreted with the aid of an FDA-approved computer-aided dectection system. Electronically Signed By: Jesús Clements MD 03/04/20 [id number]
== END ==
LOC: M WHC 13:11
PROVIDERS: ATTEND Family Medicine
DX: Z12.31 Encounter for screening mammogram for malignant neoplasm of breast (principal); Z80.3 Family history of malignant neoplasm of breast